=== PATIENT | female | born 1990 | race Native Hawaiian/Other Pacific Islander ===

== ENCOUNTER 2023-02-17 17:11 | Emergency (ER) | payer OTHER ==
[~2023-02-17] VITALS: Ht 165.1 cm; Wt 59.0 kg
[2023-02-17 18:00] VITALS: BP 99/68; TEMP 97.9
== END 2023-02-17 18:05 | disposition home or self-care (01) ==
LOC: ED 17:11
DX: J45.901 Unspecified asthma with (acute) exacerbation (principal)
CPT/HCPCS: 81025; 94664; 99283; J1100